=== PATIENT | female | born 1965 | race Two or more races ===

== ENCOUNTER 2018-01-27 23:41 | Observation (INO) | payer OTHER ==
--- NOTE | 2018-01-28 00:27 | PDOC ---
History of Present Illness - General Chief Complaint: Chest Pain Stated Complaint: CHEST PAIN Time Seen by Provider: 01/28/18 00:06 - History of Present Illness Initial Comments: 01/28/18 00:25 52 yo F with h/o HTN, DM, Aortic Valve Replacement (2013) who p/w chest pain. 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 Also endorses pain, radiating to BL neck and jaw, with SOB, and palpitations all lasting for 2 minutes and resolving spontaneously. No identifiable triggers or alleviators. Chest pain different than epigastria chest pain experienced in past. Patient denies N/V, F/C, cough, wheezing, PND, orthopnea, leg swelling/leg pain , CP, SOB, urinary complaints, abdominal pain, diarrhea, constipation, lightheadedness, weakness, sensory changes. PMHx: as noted above. Denies h/o CA, stent placement or CABG, or abnml stress test. Denies h/o PE. 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 Past History - Past Medical History Allergies/Adverse Reactions: Allergies Allergy/AdvReac Type Severity Reaction Status Date / Time No Known Drug Allergies Allergy Verified 02/01/15 07:26 Home Medications: Ambulatory Orders Aspirin [Aspirin EC] 81 mg PO DAILY 05/14/14 Metoprolol Tartrate [Lopressor -] 25 mg PO DAILY 05/14/14 Simvastatin [Zocor -] 20 mg PO DAILY 01/31/15 metFORMIN HCL [Metformin HCl] 1,000 mg PO DAILY 01/31/15 Anemia: Yes Asthma: No Cardiac Disorders: Yes (CAD) CVA: No COPD: No CHF: No Dementia: No Diabetes: No GI Disorders: No Disorders: No HTN: Yes Hypercholesterolemia: Yes Liver Disease: No Seizures: No Thyroid Disease: No - Surgical History Abdominal Surgery: Yes ([facility]RE[facility]) Appendectomy: No Cardiac Surgery: Yes (OPEN HEART SURGERY 01/2014) Cholecystectomy: No Lung Surgery: No Neurologic Surgery: No - Suicide/Smoking/Psychosocial Hx Smoking History: Never smoked Have you smoked in the past 12 months: No Hx Alcohol Use: No Drug/Substance Use Hx: No Substance Use Type: None Hx Substance Use Treatment: No Review of Systems - Review of Systems Comments:: 01/28/18 00:54 GENERAL/CONSTITUTIONAL: No fever or chills. No weakness. HEAD, EYES, EARS, NOSE AND THROAT: No change in vision. No ear pain or discharge. No sore throat. CARDIOVASCULAR: No chest pain or shortness of breath RESPIRATORY: No cough, wheezing, or hemoptysis. GASTROINTESTINAL: No nausea, vomiting, diarrhea or constipation. GENITOURINARY: No dysuria, frequency, or change in urination. MUSCULOSKELETAL: No joint or muscle swelling or pain. No neck or back pain. SKIN: No rash NEUROLOGIC: No headache, vertigo, loss of consciousness, or change in strength/ sensation. ENDOCRINE: No increased thirst. No abnormal weight change HEMATOLOGIC/LYMPHATIC: No anemia, easy bleeding, or history of blood clots. ALLERGIC/IMMUNOLOGIC: No hives or skin allergy. *Physical Exam - Physical Exam Comments: 01/28/18 00:54 GENERAL: Awake, alert, and fully oriented, in no acute distress HEAD: No signs of trauma, normocephalic, atraumatic EYES: PERRLA, EOMI, sclera anicteric, conjunctiva clear ENT: Hearing grossly normal, nares patent, oropharynx clear without exudates. Moist mucosa NECK: Normal ROM, supple, no lymphadenopathy, JVD, or masses LUNGS: No distress, speaks full sentences, clear to auscultation bilaterally HEART: Regular rate and rhythm, normal S1 and S2, no murmurs, rubs or gallops, peripheral pulses normal and equal bilaterally. ABDOMEN: Soft, nontender, normoactive bowel sounds. No guarding, no rebound. No masses EXTREMITIES : Normal inspection, Normal range of motion, no edema. No clubbing or cyanosis. SKIN: Warm, Dry, normal turgor, no rashes or lesions noted Heart Score/ECG Review - History History: Moderately suspicious - Electrocardiogram EKG: Non specific repolarization disturbance - Age Age: 45-65 - Risk Factors Risk Factors Heart Score: Yes Hx Hypertension, Yes Hx Diabetes, Yes Positive family hx of cardiac disease Based on the list above the patient has:: >/=3 risk factors or Hx atherosclerotic disease - Troponin Troponin: </= normal limit - Score Heart Score - Total: 5 ED Treatment Course - LABORATORY CBC & Chemistry Diagram: 01/28/18 00:45 01/28/18 00:45 - RADIOLOGY Radiology Studies Ordered: Category Date Time Status CXRPORT [CHEST X-RAY PORTABLE*] [RAD] Stat Radiology 01/28/18 00:25 Ordered Medical Decision Making - Medical Decision Making 01/28/18 00:46 52 yo F with h/o HTN, DM, Aortic Valve Replacement (2013) who p/w chest pain. VSS, AF, A&OX3. ACS/CA r/o. PERC + based on age, but low risk Weils criteria based on age. R/o PNA. ED Course: CBC,CMP, Cardiac Pr. EKG, CXR UA 01/28/18 02:22 CBC,CMP: Unremarkable UA: Neg Trop: Neg EKG: NSR with LAD, LVH. Neg TONY, STD. 01/28/18 03:01 Elevated heart score 5 with 13 % risk MACE. Plan to admit to tele/obs. CXR: No acute pathology. 01/28/18 03:06 Admitted to tele/obs [place] *DC/Admit/Observation/Transfer Diagnosis at time of Disposition: Chest pain Qualifiers: Chest pain type: other chest pain Qualified Code(s): R07.89 - Other chest pain - Discharge Dispostion Condition at time of disposition: Stable Decision to Admit order: Yes - Referrals Referrals: Rolanda Mendoza MD [Primary Care Provider] - - Patient Instructions Printed Discharge Instructions: DI for Chest Pain Additional Instructions: Please return to the emergency department with any new or worsening symptoms or concerns. Please follow up with your primary care physician within 72 hours. Please follow up with Cardiology within one week. - Post Discharge Activity - Attestations Physician Attestion: 01/28/18 02:25 I attest to the information provided in this note.
[2018-01-28 00:30] VITALS: BMI 31.4
[2018-01-28 00:52] LABS: URINE APPEARANCE CLEAR; URINE BILIRUBIN NEGATIVE (<2.0 mg/dL); URINE COLOR COLORLESS; URINE GLUCOSE (UA) NEGATIVE (NEGATIVE); URINE KETONE NEGATIVE (NEGATIVE); URINE LEUK ESTERASE NEGATIVE (NEGATIVE); URINE NITRITE NEGATIVE (NEGATIVE); URINE PROTEIN NEGATIVE (NEGATIVE); URINE UROBILINOGEN NEGATIVE mg/dL (0.2-1.0)
[2018-01-28 00:53] LABS: BASO % 0.5 % (0-2.0); EOS % 2.5 % (0-4.5); HEMATOCRIT 35.5 % (32.4-45.2); HEMOGLOBIN 11.8 GM/dL (10.7-15.3); LYMPH % 31.7 % (8-40); MCH 27.3 pg (25.7-33.7); MCHC 33.1 g/dl (32.0-36.0); MEAN CELL VOLUME 82.4 fl (80-96); MEAN PLT VOLUME 8.3 fl (7.5-11.1); MONO % 5.3 % (3.8-10.2); PLATELET COUNT 319 K/MM3 (134-434); WHITE BLOOD COUNT 11.5 K/mm3 (4.0-10.0)
[2018-01-28 01:22] LABS: ALBUMIN 4.3 g/dl (3.4-5.0); ALK PHOS 76 U/L (45-117); ANION GAP 4 MMOL/L (8-16); BILIRUBIN,TOTAL 0.5 mg/dL (0.2-1); BLOOD UREA NITROGEN 18 mg/dL (7-18); CALCIUM 8.9 mg/dL (8.5-10.1); CHLORIDE 106 mmol/L (98-107); CO2 30 mmol/L (21-32); CREATININE 0.7 mg/dL (0.55-1.3); GLUCOSE,RANDOM 97 mg/dL (74-106); POTASSIUM 4.4 mmol/L (3.5-5.1); SGOT/AST 33 U/L (15-37); SGPT/ALT 43 U/L (13-61); SODIUM 140 mmol/L (136-145); TOT PROT 7.9 g/dl (6.4-8.2)
--- NOTE | 2018-01-28 03:04 | PDOC ---
Attending Attestation - Resident Resident Name: Fausto Hernandes - ED Attending Attestation I have performed the following: I have examined & evaluated the patient, The case was reviewed & discussed with the resident, I agree w/resident's findings & plan, Exceptions are as noted - HPI HPI: 01/28/18 03:01 52 F with h/o HTN, DM, AVR 2013, presenting with chest pain. Pt reports transient episode of chest pain associated with SOB. States pain radiated to jaw and neck and was accompanied by palpitations. THe episode lasted about 2 minutes before resolving spontaneously. Pt denies exertional or pleuritic character. Currently has no complaints. No recent travel/immobilization. No leg swelling. Pt has + FH of [place]. - Physicial Exam PE: 01/28/18 03:02 "GENERAL: Awake, alert, and fully oriented, in no acute distress. HEAD: No signs of trauma EYES: PERRLA, EOMI, sclera anicteric, conjunctiva clear ENT: Auricles normal inspection, hearing grossly normal, nares patent, oropharynx clear without exudates. Moist mucosa NECK: Nontender, no stepoffs, Normal ROM, supple, no lymphadenopathy, JVD, or masses LUNGS: Breath sounds equal, clear to auscultation bilaterally. No wheezes, and no crackles HEART: Regular rate and rhythm, normal S1 and S2, no murmurs, rubs or gallops ABDOMEN: Soft, nontender, normoactive bowel sounds. No guarding, no rebound. No masses EXTREMITIES: Normal range of motion, no edema. No clubbing or cyanosis. No cords, erythema, or tenderness NEUROLOGICAL: Cranial nerves II through XII intact. 5/5 strength and sensation in all extremities, Normal speech, normal gait, normal cerebellar function SKIN: Warm, Dry, normal turgor, no rashes or lesions noted. - Medical Decision Making 01/28/18 03:03 52 F with chest pain. Exam unremarkable. EKG with TWI in I and aVL, no priors to compare. Will need ACS r/o. Pt with no PE risk factors, stable vitals, no clinical signs of DVT. - Labs, trop - CXR 01/28/18 03:13 Trop negative HEART score 4 Will admit tele obs
--- NOTE | 2018-01-28 04:15 | HP ---
CHIEF COMPLAINT: Chest Pain PCP: Dr Mendoza HISTORY OF PRESENT ILLNESS: Pt is a 52 y/o lady with a significant past medical history of Aortic Valve Replacement ( 2013), HTN, and DM who presented to [facility] c/o chest pain and shortness of breath. Pt endorses that yesterday evening ,around 9 pm, she was watching television at home when she suddenly felt a pressure-like pain in her mid-chest. Pain radiated to her jaw and head. Pt states she was not exerting herself at the moment and cannot recall any precipitating factors. Pt states she became disoriented shortly after this incident. Pt states that for the past 6 months she has been becoming more short of breath when performing regular, daily activities. Pt cannot cross a street without becoming short of breath and needing to stop to catch her breath. endorses being kristofer stressed out recently and has been traveling to [place], [place] ( about a 1 hour car ride from her house) every day to visit her son. Denies changes in vision, loss of consciousness, numbness, or tingling. ER course was notable for: (1) Trop negative (2) EKG with TWI in I and aVL (3) WBC 11.5 Recent Travel: PAST MEDICAL HISTORY: Per HPI PAST SURGICAL HISTORY: AVR 2013 Social History: Smoking: Denies Alcohol: Denies Drugs: Denies Family History: Allergies No Known Drug Allergies Allergy (Verified 02/01/15 07:26) HOME MEDICATIONS: Home Medications Medication Instructions Recorded Aspirin [Aspirin EC] 81 mg PO DAILY 05/14/14 Metoprolol Tartrate [Lopressor -] 25 mg PO DAILY 05/14/14 Simvastatin [Zocor -] 20 mg PO DAILY 01/31/15 metFORMIN HCL [Metformin HCl] 1,000 mg PO DAILY 01/31/15 REVIEW OF SYSTEMS CONSTITUTIONAL: Absent: fever, chills, diaphoresis, generalized weakness, malaise, loss of appetite, weight change HEENT: Absent: rhinorrhea, nasal congestion, throat pain, throat swelling, difficulty swallowing, mouth swelling, ear pain, eye pain, visual changes CARDIOVASCULAR: PRESENT: chest pain, , palpitations, irregular heart rate, lightheadedness, RESPIRATORY: PRESENT: shortness of breath, dyspnea with exertion, orthopnea GASTROINTESTINAL: Absent: abdominal pain, abdominal distension, nausea, vomiting, diarrhea, constipation, melena, hematochezia GENITOURINARY: Absent: dysuria, frequency, urgency, hesitancy, hematuria, flank pain, genital pain MUSCULOSKELETAL: Absent: myalgia, arthralgia, joint swelling, back pain, neck pain SKIN: Absent: rash, itching, pallor HEMATOLOGIC/IMMUNOLOGIC: Absent: easy bleeding, easy bruising, lymphadenopathy, frequent infections ENDOCRINE: Absent: unexplained weight gain, unexplained weight loss, heat intolerance, cold intolerance NEUROLOGIC: Absent: headache, focal weakness or paresthesias, dizziness, unsteady gait, seizure, mental status changes, bladder or bowel incontinence PSYCHIATRIC: Absent: anxiety, depression, suicidal or homicidal ideation, hallucinations. PHYSICAL EXAMINATION Vital Signs - 24 hr 01/27/18 23:51 Temperature 98.5 F Pulse Rate 81 Respiratory 19 Rate Blood Pressure 130/63 O2 Sat by Pulse 99 Oximetry (%) GENERAL: AAOx3, NAD HEAD: NC/AT EYES: EOMI, PERRLA EARS, NOSE, THROAT: MMM NECK: Supple HEART: 4/6 diastolic murmur right 2nd ICS. CHEST: Sternotomy scar s/p AVR Replacement ABDOMEN: ND NT No HSMn MUSCULOSKELETAL: Full ROM throughout UPPER EXTREMITIES: No CCE LOWER EXTREMITIES: No CCE NEUROLOGICAL: CN 2-12 intact PSYCHIATRIC: Cooperative. Good eye contact. Appropriate mood and affect. SKIN: Warm, no rashs or lesions appreciated Laboratory Results - last 24 hr 01/28/18 01/28/18 01/28/18 00:45 00:45 00:45 WBC 11.5 H RBC 4.30 Hgb 11.8 Hct 35.5 MCV 82.4 MCH 27.3 MCHC 33.1 RDW 15.0 Plt Count 319 MPV 8.3 Absolute Neuts (auto) 6.9 Neutrophils % 60.0 Lymphocytes % 31.7 Monocytes % 5.3 Eosinophils % 2.5 Basophils % 0.5 Nucleated RBC % 0 Sodium Potassium Chloride Carbon Dioxide Anion Gap BUN Creatinine Creat Clearance w eGFR Random Glucose Calcium Total Bilirubin AST ALT Alkaline Phosphatase Creatine Kinase 141 Troponin I 0.02 Total Protein Albumin Urine Color Colorless Urine Appearance Clear Urine pH 8.0 Ur Specific [place] 1.005 Urine Protein Negative Urine Glucose (UA) Negative Urine Ketones Negative Urine Blood Negative Urine Nitrite Negative Urine Bilirubin Negative Urine Urobilinogen Negative Ur Leukocyte Esterase Negative 01/28/18 00:45 WBC RBC Hgb Hct MCV MCH MCHC RDW Plt Count MPV Absolute Neuts (auto) Neutrophils % Lymphocytes % Monocytes % Eosinophils % Basophils % Nucleated RBC % Sodium 140 Potassium 4.4 Chloride 106 Carbon Dioxide 30 Anion Gap 4 L BUN 18 Creatinine 0.7 Creat Clearance w eGFR > 60 Random Glucose 97 Calcium 8.9 Total Bilirubin 0.5 AST 33 ALT 43 Alkaline Phosphatase 76 Creatine Kinase Troponin I Total Protein 7.9 Albumin 4.3 Urine Color Urine Appearance Urine pH Ur Specific [place] Urine Protein Urine Glucose (UA) Urine Ketones Urine Blood Urine Nitrite Urine Bilirubin Urine Urobilinogen Ur Leukocyte Esterase ASSESSMENT/PLAN: 52 y/o lady with a significant past medical history of Aortic Valve Replacement ( 2013), HTN, and DM who presented to [facility] c/o chest pain and shortness of breath. # Chest Pain 2/2 ACS? - EKG with TWI in I and aVL -Troponin on admission 0.02, repeat Troponin Q6H twice -Repeat Trop this am is <0.02. -Repeat another Trop in 6 H -Cardio on board -Continue Metoprolol 25 mg Daily -Continue Simvastatin 20 mg daily -Aspirin 81 mg po daily # DM Continue Metformin 500 mg po BID FEN No Fluids Monitor Electrolytes Sodium Diet DVT ppx: Heparin 5,000 U SQ BID Dispo: Continue to monitor in tele obs Visit type - Emergency Visit Emergency Visit: Yes ED Registration Date: 01/28/18 Care time: The patient presented to the Emergency Department on the above date and was hospitalized for further evaluation of their emergent condition. - New Patient This patient is new to me today: Yes Date on this admission: 01/28/18 - Critical Care Critical Care patient: No Hospitalist Screening - Colonoscopy Questionnaire Colonoscopy Questionnaire: Colonoscopy Questionnaire - Patient: 50 - 75 years old and never had a screening colonoscopy: Unknown History of colon or rectal polyps, or CA: Unknown History of IBD, Crohn's disease or UC: Unknown History of abdominal radiation therapy as a child: Unknown - Relative: 1 with colon or rectal CA, or polyps at age 60 or younger: Unknown Colon or rectal CA diagnosed at age 45 or younger: Unknown Multiple relatives with colon or rectal CA: Unknown - Outcome: Screening Result: Negative Screen
[2018-01-28 08:04] LABS: BASO % 0.8 % (0-2.0); EOS % 3.2 % (0-4.5); HEMATOCRIT 35.3 % (32.4-45.2); HEMOGLOBIN 11.8 GM/dL (10.7-15.3); LYMPH % 34.3 % (8-40); MCH 27.5 pg (25.7-33.7); MCHC 33.4 g/dl (32.0-36.0); MEAN CELL VOLUME 82.3 fl (80-96); MEAN PLT VOLUME 8.3 fl (7.5-11.1); NEUT % 56.7 % (42.8-82.8); PLATELET COUNT 300 K/MM3 (134-434); RBC 4.28 M/mm3 (3.60-5.2); RDW 15.3 % (11.6-15.6); WHITE BLOOD COUNT 10.9 K/mm3 (4.0-10.0)
--- NOTE | 2018-01-28 08:09 | PN ---
Teaching Attending Note Name of Resident: Vini Herrmann ATTENDING PHYSICIAN STATEMENT I saw and evaluated the patient. I reviewed the resident's note and discussed the case with the resident. I agree with the resident's findings and plan as documented. SUBJECTIVE: 52 y/o F with h/o AVR presented to ED c/o sudden onset of substernal chest pain at rest, without radiation lasting less than 5 minutes. Patient also noted SOB, Dysponea on exertion and decreased exercise tolerance. Denies Nausea, palpitations or similar experience before. PMH: DM2, HTN, AVR 2013 OBJECTIVE: Gen: A&Ox3, NAD HEENT: PERRLA, EOMI, MMM, No JVD CVS: RRR, S1, S2, Grade 4/6 diastolic murmur right 2nd ICS. LUNGS: CTA Abd: Soft, NT, ND, BS+ Ext: trace edema CBCD WBC 11.5 K/mm3 (4.0-10.0) H 01/28/18 00:45 RBC 4.30 M/mm3 (3.60-5.2) 01/28/18 00:45 Hgb 11.8 GM/dL (10.7-15.3) 01/28/18 00:45 Hct 35.5 % (32.4-45.2) 01/28/18 00:45 MCV 82.4 fl (80-96) 01/28/18 00:45 MCHC 33.1 g/dl (32.0-36.0) 01/28/18 00:45 RDW 15.0 % (11.6-15.6) 01/28/18 00:45 Plt Count 319 K/MM3 (134-434) 01/28/18 00:45 MPV 8.3 fl (7.5-11.1) 01/28/18 00:45 CMP Sodium 140 mmol/L (136-145) 01/28/18 00:45 Potassium 4.4 mmol/L (3.5-5.1) 01/28/18 00:45 Chloride 106 mmol/L (98-107) 01/28/18 00:45 Carbon Dioxide 30 mmol/L (21-32) 01/28/18 00:45 Anion Gap 4 MMOL/L (8-16) L 01/28/18 00:45 BUN 18 mg/dL (7-18) 01/28/18 00:45 Creatinine 0.7 mg/dL (0.55-1.3) 01/28/18 00:45 Creat Clearance w eGFR > 60 (>60) 01/28/18 00:45 Calcium 8.9 mg/dL (8.5-10.1) 01/28/18 00:45 Total Bilirubin 0.5 mg/dL (0.2-1) 01/28/18 00:45 AST 33 U/L (15-37) 01/28/18 00:45 ALT 43 U/L (13-61) 01/28/18 00:45 Alkaline Phosphatase 76 U/L (45-117) 01/28/18 00:45 Total Protein 7.9 g/dl (6.4-8.2) 01/28/18 00:45 Albumin 4.3 g/dl (3.4-5.0) 01/28/18 00:45 ASSESSMENT AND PLAN: Chest Pain r/o ACS Admit to telemetry for observation Trend troponins Aspirin 81mg Continue metoprolol ECHO Consider Cardiology consult DM2- RISS A1C DVT- Prophylaxis
[2018-01-28] MEDS ORDERED: metFORMIN HCL 500 MG TABLET (FP) PO SCH (08:15)
[2018-01-28 08:21] LABS: PROTHROMBIN TIME (PATIENT) 11.3 SEC (9.7-13.0)
[2018-01-28 08:24] LABS: ACTIVATED PTT 34.6 SECONDS (25.2-36.5)
[2018-01-28] MEDS ORDERED: metFORMIN HCL 500 MG TABLET (FP) ONE (08:32)
[2018-01-28 09:17] LABS: ANION GAP 10 MMOL/L (8-16); BLOOD UREA NITROGEN 14 mg/dL (7-18); CALCIUM 8.9 mg/dL (8.5-10.1); CHLORIDE 106 mmol/L (98-107); CO2 26 mmol/L (21-32); CREATININE 0.6 mg/dL (0.55-1.3); GLUCOSE,RANDOM 95 mg/dL (74-106); MAGNESIUM 2.2 mg/dL (1.8-2.4); PHOSPHOROUS 3.8 mg/dL (2.5-4.9); POTASSIUM 4.5 mmol/L (3.5-5.1); SODIUM 142 mmol/L (136-145)
[2018-01-28] MEDS ORDERED: METOPROLOL TARTRATE 25 MG TABLET (FP) ONE (09:23)
[2018-01-28] MEDS ORDERED: ASPIRIN 81 MG CHEWABLE TABLETS ONE (09:23)
[2018-01-28] MEDS ORDERED: HEPARIN NA (PORCINE) 5,000 UNITS/ML 1ML VIAL ONE (09:24)
[2018-01-28 09:41] VITALS: TEMP 98.3
[2018-01-28] MEDS ORDERED: METOPROLOL TARTRATE 25 MG TABLET (FP) PO SCH (10:00)
[2018-01-28] MEDS ORDERED: ASPIRIN 81 MG CHEWABLE TABLETS PO SCH (10:00)
[2018-01-28] MEDS ORDERED: HEPARIN NA (PORCINE) 5,000 UNITS/ML 1ML VIAL SQ SCH (10:00)
--- NOTE | 2018-01-28 11:25 | EKG ---
Test Reason : Blood Pressure : / mmHG Vent. Rate : 081 BPM Atrial Rate : 081 BPM P-R Int : 132 ms QRS Dur : 110 ms QT Int : 384 ms P-R-T Axes : 035 -36 089 degrees QTc Int : 446 ms NORMAL SINUS RHYTHM POSSIBLE LEFT ATRIAL ENLARGEMENT LEFT AXIS DEVIATION LEFT VENTRICULAR HYPERTROPHY WITH REPOLARIZATION ABNORMALITY ABNORMAL ECG NO PREVIOUS ECGS AVAILABLE Confirmed by J CARLOS MARTELL MD ([id number]) on 01/28/2018 11:25:20 AM Referred By: Confirmed By:J CARLOS MARTELL MD
--- NOTE | 2018-01-28 11:53 | CON.CARD ---
Cardiology Consult (text) - Consultation Consultation Note: cc: cp hpi: 52 f hx bio avr 2013, htn, hld, dm here with cp. Last night was sitting and watching tv and felt central chest tightness, mild, resolved on own in minute. No other sxs. No exertional cp. Has long hx of atypical cp episodes. No sob, palps dizzy loc pnd orthopnea le edema. Sees me for cardio. pmh: per hpi psh: avr social: no tob fam: no premature cad, scd ros: per hpi; no nvd fever cough gallagher vision changes muscle pain gib hematuria meds: Home Medications Medication Instructions Recorded Aspirin [Aspirin EC] 81 mg PO DAILY 05/14/14 Metoprolol Tartrate [Lopressor -] 25 mg PO DAILY 05/14/14 Simvastatin [Zocor -] 20 mg PO DAILY 01/31/15 metFORMIN HCL [Metformin HCl] 1,000 mg PO DAILY 01/31/15 pe: Vital Signs Period Temp Pulse Resp BP Sys/Singletary Pulse Ox Last 24 Hr 98.3 F-98.5 F 68-89 18-19 107-130/41-63 99-100 nad no jvd rrr s1s2 nomrg cta bl nl eff aaox3 no le e/c/c abd nt nd pos bs no jaundice diaphoresis pos dp pt no carotid bruits Laboratory Last Values WBC 10.9 K/mm3 (4.0-10.0) H 01/28/18 07:50 RBC 4.28 M/mm3 (3.60-5.2) 01/28/18 07:50 Hgb 11.8 GM/dL (10.7-15.3) 01/28/18 07:50 Hct 35.3 % (32.4-45.2) 01/28/18 07:50 MCV 82.3 fl (80-96) 01/28/18 07:50 MCH 27.5 pg (25.7-33.7) 01/28/18 07:50 MCHC 33.4 g/dl (32.0-36.0) 01/28/18 07:50 RDW 15.3 % (11.6-15.6) 01/28/18 07:50 Plt Count 300 K/MM3 (134-434) 01/28/18 07:50 MPV 8.3 fl (7.5-11.1) 01/28/18 07:50 Absolute Neuts (auto) 6.2 K/mm3 (1.5-8.0) 01/28/18 07:50 Neutrophils % 56.7 % (42.8-82.8) 01/28/18 07:50 Lymphocytes % 34.3 % (8-40) 01/28/18 07:50 Monocytes % 5.0 % (3.8-10.2) 01/28/18 07:50 Eosinophils % 3.2 % (0-4.5) 01/28/18 07:50 Basophils % 0.8 % (0-2.0) 01/28/18 07:50 Nucleated RBC % 0 % (0-0) 01/28/18 07:50 PT with INR 11.30 SEC (9.7-13.0) 01/28/18 07:50 INR 1.00 (0.83-1.09) 01/28/18 07:50 PTT (Actin FS) 34.6 SECONDS (25.2-36.5) 01/28/18 07:50 Sodium 142 mmol/L (136-145) 01/28/18 07:50 Potassium 4.5 mmol/L (3.5-5.1) 01/28/18 07:50 Chloride 106 mmol/L (98-107) 01/28/18 07:50 Carbon Dioxide 26 mmol/L (21-32) 01/28/18 07:50 Anion Gap 10 MMOL/L (8-16) 01/28/18 07:50 BUN 14 mg/dL (7-18) 01/28/18 07:50 Creatinine 0.6 mg/dL (0.55-1.3) 01/28/18 07:50 Creat Clearance w eGFR > 60 (>60) 01/28/18 07:50 Random Glucose 95 mg/dL (74-106) 01/28/18 07:50 Calcium 8.9 mg/dL (8.5-10.1) 01/28/18 07:50 Phosphorus 3.8 mg/dL (2.5-4.9) 01/28/18 07:50 Magnesium 2.2 mg/dL (1.8-2.4) 01/28/18 07:50 Total Bilirubin 0.5 mg/dL (0.2-1) 01/28/18 00:45 AST 33 U/L (15-37) 01/28/18 00:45 ALT 43 U/L (13-61) 01/28/18 00:45 Alkaline Phosphatase 76 U/L (45-117) 01/28/18 00:45 Creatine Kinase 124 IU/L (26-192) 01/28/18 07:50 Troponin I < 0.02 ng/ml (0.00-0.05) 01/28/18 07:50 Total Protein 7.9 g/dl (6.4-8.2) 01/28/18 00:45 Albumin 4.3 g/dl (3.4-5.0) 01/28/18 00:45 Urine Color Colorless 01/28/18 00:45 Urine Appearance Clear 01/28/18 00:45 Urine pH 8.0 (5.0-8.0) 01/28/18 00:45 Ur Specific [place] 1.005 (1.001-1.035) 01/28/18 00:45 Urine Protein Negative (NEGATIVE) 01/28/18 00:45 Urine Glucose (UA) Negative (NEGATIVE) 01/28/18 00:45 Urine Ketones Negative (NEGATIVE) 01/28/18 00:45 Urine Blood Negative (NEGATIVE) 01/28/18 00:45 Urine Nitrite Negative (NEGATIVE) 01/28/18 00:45 Urine Bilirubin Negative (<2.0 mg/dL) 01/28/18 00:45 Urine Urobilinogen Negative mg/dL (0.2-1.0) 01/28/18 00:45 Ur Leukocyte Esterase Negative (NEGATIVE) 01/28/18 00:45 ecg: sr, lvh with repol, nl intervals cxr: no chf cath 2014: nl cors a/p: 52 f hx bio avr 2013, htn, hld, dm here with cp. cp: -atypical features, resolved -no signs acs, ce's neg x2 -will check stress echo, if unremarkable ok for dc bio avr: -stable on recent outpt echo htn: -cont bb hld: -cont statin
--- NOTE | 2018-01-28 14:33 | DS ---
Physical Examination Vital Signs: Vital Signs Temperature 36.8 C 01/28/18 13:45 Pulse Rate 76 01/28/18 14:23 Respiratory Rate 22 H 01/28/18 14:23 Blood Pressure 122/80 01/28/18 14:23 O2 Sat by Pulse Oximetry (%) 100 01/28/18 09:39 Constitutional: Yes: Well Nourished, No Distress, Calm Cardiovascular: Yes: Regular Rate and Rhythm, Murmur. No: Gallop, Rub Respiratory: Yes: Regular, CTA Bilaterally. No: Rales, Rhonchi, Wheezes Gastrointestinal: Yes: Normal Bowel Sounds, Soft. No: Distention, Tenderness Extremities: Yes: WNL Edema: No Labs: CBC, BMP 01/28/18 07:50 01/28/18 07:50 Discharge Summary Reason For Visit: CHEST PAIN Current Active Problems Chest pain (Acute) Hospital Course: Ms Mccarthy is a very pleasant 52 year old female who comes in with atypical chest pain. She was admitted under observation. Cardiac enzymes x3 were sent and negative. She had no changes on her EKG. Cardiology saw her and she underwent a stress which was normal. she is safe for discharge home. Condition: Stable - Instructions Diet, Activity, Other Instructions: Please return to the emergency department with any new or worsening symptoms or concerns. Please follow up with your primary care physician within 72 hours. Please follow up with Cardiology within one week. Referrals: Rolanda Mendoza MD [Primary Care Provider] - Felipe Corcoran MD [Staff Physician] - Disposition: HOME - Home Medications Comprehensive Discharge Medication List: Ambulatory Orders Aspirin [Aspirin EC] 81 mg PO DAILY 05/14/14 Metoprolol Tartrate [Lopressor -] 25 mg PO DAILY 05/14/14 Simvastatin [Zocor -] 20 mg PO DAILY 01/31/15 metFORMIN HCL [Metformin HCl] 1,000 mg PO DAILY 01/31/15
--- NOTE | 2018-01-28 15:23 | ECHO ---
Version: 1 Name: DEV SALGADO Exam: Adult Echocardiogram Study Date: 01/28/2018, 1:48 PM Age: 52 Years Summary Statements Medications include Beta-blockers. The left ventricle is grossly normal size. The left ventricular ejection fraction is normal. Total Stress Time was 8-9 minutes. Exercise was stopped due to fatigue. There was a maximum 1mm ST segment depression in the inferior leads. Pt's rest EKG showed abnormalities, including LVH. The mild ST depression during the recovery peiod was brief; pt was asymptomatic; and ECHO images were negative for ischemia. Stress Comments Medications include Beta-blockers. Abnormal resting electrocardiogram. A treadmill exercise test acc ording to Rafi protocol was performed. There was a maximum 1mm ST segment depression in the inferior leads. P t's rest EKG showed abnormalities, including LVH. The mild ST depression during the recovery peiod was brief; pt was asymptomatic; and ECHO images were negative for ischemia. Total Stress Time was 8-9 minutes. Exercis e was stopped due to fatigue. Left Ventricle The left ventricle is grossly normal size. The left ventricular ejection fraction is normal. Exercise Echocardiogram Negative stress treadmill ECHO examination by ECHO imaging (mild, transient ST depression during rec overy was not considered ischemic due to baseline EKG abnormalities). Heart rate achieved was slightly subopti mal (74% MPHR); fiar exercise funceiontal capacity. Pt had no chest pain or dyspnea during the examination. Ruy Roy MD 01/28/2018, 3:23 PM Ordering Physician: Felipe Corcoran Performed By: Yany Holloway
[2018-01-28 16:14] VITALS: BP 109/43; PULSE 72
[2018-01-28] MEDS ORDERED: ATORVASTATIN CA 10 MG TABLET (FP) PO SCH (22:00)
== END 2018-01-28 16:15 | disposition home or self-care (01) ==
LOC: JER 23:41 → JERBED 01-28 03:10
PROVIDERS: ADMIT Internal Medicine; ATTEND Internal Medicine
PROC: 3E013GC Introduction of Other Therapeutic Substance into Subcutaneous Tissue, Percutaneous Approach (ICD-10-PCS; principal; 2018-01-28)
DX: R07.89 Other chest pain (principal); I10 Essential (primary) hypertension; I25.10 Atherosclerotic heart disease of native coronary artery without angina pectoris; E11.9 Type 2 diabetes mellitus without complications; E78.5 Hyperlipidemia, unspecified; D64.9 Anemia, unspecified; Z95.2 Presence of prosthetic heart valve; Z79.82 Long term (current) use of aspirin; Z79.84 Long term (current) use of oral hypoglycemic drugs
CPT/HCPCS: 36415; 71045-TC-FY; 80048; 80053; 81003; 82550; 83735; 84100; 84484; 85025; 85610; 85730; 93005; 93010; 93351; 96372; 99285-25; G0378; J1644

== ENCOUNTER 2018-07-24 15:19 | Emergency (ER) | payer OTHER ==
[2018-07-24 15:25] VITALS: BMI 29.0
[2018-07-24] MEDS ORDERED: ASPIRIN 81 MG CHEWABLE TABLETS PO ONE (15:40)
[2018-07-24] MEDS ORDERED: ASPIRIN 81 MG CHEWABLE TABLETS ONE (15:41)
--- NOTE | 2018-07-24 15:43 | PDOC ---
History of Present Illness - General Chief Complaint: Shortness of Breath Stated Complaint: SHORTNESS OF BREATH - History of Present Illness Initial Comments: The pt is a 52F w/ a history of asthma, HLD, HTN, AVR (4y ago, [place]) who presents for evaluation of 1 month of exertional chest pain and shortness of breath that has acutely worsened over the last three days. She reports not being able to sleep last night because of the discomfort. Reports that she was given an inhaler which would initially provide relief for a few minutes but has not been helpful the last few days. States that she is short of breath with even short distances of walking. Endorses current chest discomfort and shortness of breath and nausea Denies recent illness/fever, [place], vision changes, abdominal pain, vomiting, diarrhea 07/24/18 16:30 Past History - Past Medical History Allergies/Adverse Reactions: Allergies Allergy/AdvReac Type Severity Reaction Status Date / Time No Known Drug Allergies Allergy Verified 07/24/18 15:23 Home Medications: Ambulatory Orders Aspirin [Aspirin EC] 81 mg PO DAILY 05/14/14 Metoprolol Tartrate [Lopressor -] 50 mg PO DAILY 05/14/14 Simvastatin [Zocor -] 20 mg PO DAILY 01/31/15 metFORMIN HCL [Metformin HCl] 1,000 mg PO BID 01/31/15 Amlodipine Besylate [Norvasc -] 10 mg PO DAILY 07/24/18 Nitroglycerin [Nitrostat] 0.4 mg SL TIDCM PRN 07/24/18 Anemia: Yes Asthma: No Cardiac Disorders: Yes (CAD) CVA: No COPD: No CHF: No Dementia: No Diabetes: Yes GI Disorders: No Disorders: No HTN: Yes Hypercholesterolemia: Yes Liver Disease: No Seizures: No Thyroid Disease: No - Surgical History Abdominal Surgery: Yes (TUMMY TUCK) Appendectomy: No Cardiac Surgery: Yes (OPEN HEART 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 No sore throat RESPIRATORY: Denies cough, hemoptysis GASTROINTESTINAL: No vomiting, diarrhea or constipation GENITOURINARY: No dysuria, frequency, or change in urination MUSCULOSKELETAL: No joint or muscle swelling or pain. No neck or back pain SKIN: No rash NEUROLOGIC: No vertigo, loss of consciousness, or change in strength/sensation ENDOCRINE: No increased thirst. No abnormal weight change HEMATOLOGIC/LYMPHATIC: No anemia, easy bleeding, or history of blood clots ALLERGIC/IMMUNOLOGIC: No hives or skin allergy 07/24/18 16:36 Is the patient limited Macedonian proficient: No *Physical Exam - Vital Signs Last Vital Signs Temp Pulse Resp BP Pulse Ox 97.4 F L 116 H 28 H 146/64 95 07/24/18 15:23 07/24/18 15:23 07/24/18 15:23 07/24/18 15:23 07/24/18 15:23 - Physical Exam Comments: GENERAL: Awake, alert, and oriented to person/place/time, in mild distress HEAD: No signs of trauma, normocephalic, atraumatic EYES: PERRLA, EOMI, sclera anicteric, conjunctiva clear ENT: Hearing grossly normal, nares patent, oropharynx clear without exudates. Moist mucosa LUNGS: Tachypnic, speaks full sentences, clear to auscultation bilaterally HEART: Tachycardia w/ regular rhythm, systolic murmur appreciated, peripheral pulses normal and equal bilaterally ABDOMEN: Soft, nontender, normoactive bowel sounds. No guarding, no rebound EXTREMITIES: Normal inspection, Normal range of motion, no edema. No clubbing or cyanosis NEUROLOGICAL: Cranial nerves II through XII grossly intact. Normal speech, no focal sensorimotor deficits SKIN: Warm, Dry 07/24/18 16:37 Moderate Sedation - Procedure Monitoring Vital Signs: Procedure Monitoring Vital Signs Temperature 97.4 F L 07/24/18 15:23 Pulse Rate 116 H 07/24/18 15:23 Respiratory Rate 28 H 07/24/18 15:23 Blood Pressure 146/64 07/24/18 15:23 O2 Sat by Pulse Oximetry (%) 95 07/24/18 15:23 ED Treatment Course - LABORATORY CBC & Chemistry Diagram: 07/24/18 15:42 07/24/18 15:42 Medical Decision Making - Medical Decision Making The pt is a 52F w/ a history of HTN, HLD, and AVR (4 years ago, [place]) who presents with 1 month of exertional chest pain that has acutely worsened over the last 3 days. ECG w/ ST elevations in V1-3, aVR; depressions in I, II, V6 Transfer initiated to [facility] [employer], Accepted by Dr. Clifford Madsen. Pt to be transported by [facility] ASA 243mg PO once and started on a Heparin gtt Initial trop I 0.09 No leukocytosis No anemia Dispo: Transfer to [facility] 07/24/18 15:5 *DC/Admit/Observation/Transfer Diagnosis at time of Disposition: Chest discomfort STEMI (ST elevation myocardial infarction) Qualifiers: Involved coronary artery: unspecified coronary artery Qualified Code(s): I21.3 - ST elevation (STEMI) myocardial infarction of unspecified site - Discharge Dispostion Disposition: TRANSFER ACUTE CARE/OTHER HOSP Condition at time of disposition: Critical Decision to Admit order: No - Referrals Referrals: ON STAFF,NOT [Primary Care Provider] - - Patient Instructions - Post Discharge Activity - Transfer to Acute Care Facility Receiving Facility: [facility] Accepting Physician:: Dr. Madsen
--- NOTE | 2018-07-24 15:47 | PDOC ---
Attending Attestation - Resident Resident Name: Albert Dwyer - ED Attending Attestation I have performed the following: I have examined & evaluated the patient, The case was reviewed & discussed with the resident, I agree w/resident's findings & plan, Exceptions are as noted - HPI HPI: 52 yo F history DM, HTN, AVR (bovine) presents with cp and SOB. She states she has had SOB for the past month, now getting dyspneic with exertion. She presents to the ED today because she was having difficulty sleeping last night. C/o chest pressure presently. - Physicial Exam PE: GENERAL: Awake, alert, and fully oriented, in no acute distress HEAD: No signs of trauma EYES: PERRLA, EOMI, sclera anicteric, conjunctiva clear ENT: Auricles normal inspection, hearing grossly normal, nares patent, oropharynx clear without exudates. Moist mucosa NECK: Normal ROM, supple, no lymphadenopathy, JVD, or masses LUNGS: Breath sounds equal, clear to auscultation bilaterally. No wheezes, and no crackles HEART: Regular rate and rhythm, IV/ systolic murmur ABDOMEN: Soft, nontender, normoactive bowel sounds. No guarding, no rebound. No masses EXTREMITIES: Normal range of motion, no edema. No clubbing or cyanosis. No cords, erythema, or tenderness NEUROLOGICAL: Cranial nerves II through XII grossly intact. Normal speech, normal gait. Motor and sensation intact SKIN: Warm, Dry, normal turgor, no rashes or lesions noted. - Critical Care Time Total Critical Care Time: 35 Critical Care Statement: The care of this patient involved high complexity decision making to prevent further life threatening deterioration of the patient 's condition and/or to evaluate & treat vital organ system(s) failure or risk of failure. - Medical Decision Making 07/24/18 15:40 Case d/w Dr. Xiao. Transmitted EKG to her. 07/24/18 15:47 Case d/w Dr. Xiao after reviewing the EKG. We agree it is concerning for STEMI. She requested that I call Dr. Madsen at [facility] for transfer. 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 Awaiting EMS transport.
[2018-07-24] MEDS ORDERED: HEPARIN NA (PORCINE) 5,000 UNITS/ML 1ML VIAL IVPUSH ONE (15:48)
[2018-07-24 15:52] LABS: BASO % 0.7 % (0-2.0); HEMATOCRIT 35.4 % (32.4-45.2); LYMPH % 26.9 % (8-40); MCHC 33.9 g/dl (32.0-36.0); MEAN CELL VOLUME 82.6 fl (80-96); MEAN PLT VOLUME 8.4 fl (7.5-11.1); NEUT % 65.4 % (42.8-82.8); PLATELET COUNT 354 K/MM3 (134-434); RBC 4.29 M/mm3 (3.60-5.2); RDW 16.2 % (11.6-15.6); WHITE BLOOD COUNT 11.7 K/mm3 (4.0-10.0)
[2018-07-24] MEDS ORDERED: HEPARIN INFUSION - 25,000 UNITS/500 ML INFUS.BAG IVPB ONE (15:52)
[2018-07-24] MEDS ORDERED: HEPARIN NA (PORCINE) 5,000 UNITS/ML 1ML VIAL ONE (15:55)
[2018-07-24] MEDS ORDERED: HEPARIN INFUSION - 25,000 UNITS/500 ML INFUS.BAG IVPB SCH (16:00)
[2018-07-24 16:08] LABS: INR 1.13 (0.83-1.09); PROTHROMBIN TIME (PATIENT) 13.4 SEC (9.7-13.0)
--- NOTE | 2018-07-24 16:09 | EKG ---
Test Reason : Blood Pressure : / mmHG Vent. Rate : 098 BPM Atrial Rate : 098 BPM P-R Int : 106 ms QRS Dur : 110 ms QT Int : 346 ms P-R-T Axes : 024 -15 178 degrees QTc Int : 441 ms SINUS RHYTHM WITH SHORT DC POSSIBLE LEFT ATRIAL ENLARGEMENT INCOMPLETE LEFT BUNDLE BRANCH BLOCK LEFT VENTRICULAR HYPERTROPHY WITH REPOLARIZATION ABNORMALITY ABNORMAL ECG WHEN COMPARED WITH ECG OF 27-JAN-2018 23:47, INCOMPLETE LEFT BUNDLE BRANCH BLOCK IS NOW PRESENT Confirmed by VANESSA DOUGHERTY MD ([id number]) on 07/24/2018 4:09:44 PM Referred By: Confirmed By:VANESSA DOUGHERTY MD
[2018-07-24 16:11] LABS: ACTIVATED PTT 36.1 SECONDS (25.2-36.5)
[2018-07-24 16:18] LABS: CHOLESTEROL 136 mg/dL (50-200); HDL CHOLESTEROL 39 mg/dL (40-60); TRIGLYCERIDES 161 mg/dL (0-150)
[2018-07-24 16:22] LABS: ALBUMIN 4.5 g/dl (3.4-5.0); ALK PHOS 73 U/L (45-117); ANION GAP 9 MMOL/L (8-16); BLOOD UREA NITROGEN 13 mg/dL (7-18); CALCIUM 9.1 mg/dL (8.5-10.1); CHLORIDE 107 mmol/L (98-107); CO2 25 mmol/L (21-32); CREATININE 0.7 mg/dL (0.55-1.3); GLUCOSE,RANDOM 79 mg/dL (74-106); MAGNESIUM 2.2 mg/dL (1.8-2.4); POTASSIUM 4.3 mmol/L (3.5-5.1); SGOT/AST 38 U/L (15-37); SGPT/ALT 42 U/L (13-61); SODIUM 140 mmol/L (136-145); TOT PROT 8.1 g/dl (6.4-8.2)
[2018-07-24 17:03] VITALS: BP 122/74; PULSE 99; TEMP 98.5
== END 2018-07-24 16:52 | disposition short-term general hospital (02) ==
LOC: JER 15:19
PROC: 3E033GC Introduction of Other Therapeutic Substance into Peripheral Vein, Percutaneous Approach (ICD-10-PCS; principal; 2018-07-24)
PROC: 3E033GC Introduction of Other Therapeutic Substance into Peripheral Vein, Percutaneous Approach (ICD-10-PCS; 2018-07-24)
DX: I21.3 ST elevation (STEMI) myocardial infarction of unspecified site (principal); I10 Essential (primary) hypertension; E78.00 Pure hypercholesterolemia, unspecified; E11.9 Type 2 diabetes mellitus without complications; Z79.84 Long term (current) use of oral hypoglycemic drugs; Z95.4 Presence of other heart-valve replacement
CPT/HCPCS: 36415; 71045-TC-FY; 80053; 80061; 82550; 83721; 83735; 84484; 85025; 85610; 85730; 86850; 86900; 86901; 93005; 93010; 96365; 96375; 99285-25; J1644